=== PATIENT | female | born 1955 | race Caucasian/White ===

== ENCOUNTER 2021-09-02 18:20 | Inpatient (IN) | payer OTHER ==
[2021-09-02 20:35] LABS: BASO % 0.7 % (0-2.0); EOS % 3.5 % (0-4.5); HEMATOCRIT 38.9 % (32.4-45.2); HEMOGLOBIN 13.1 GM/dL (10.7-15.3); LYMPH % 19.5 % (8-40); MCH 32.7 pg (25.7-33.7); MCHC 33.8 g/dl (32.0-36.0); MEAN CELL VOLUME 96.9 fl (80-96); MEAN PLT VOLUME 9.6 fl (7.5-11.1); MONO % 7.4 % (3.8-10.2); NEUT % 68.9 % (42.8-82.8); PLATELET COUNT 220 10^3/uL (134-434); RBC 4.02 M/mm3 (3.60-5.2); RDW 13.4 % (11.6-15.6); WHITE BLOOD COUNT 6.9 K/mm3 (4.0-10.0)
[2021-09-02 20:41] LABS: INR 1.1 (0.83-1.09); PROTHROMBIN TIME (PATIENT) 12.7 SEC (9.7-13.0)
[2021-09-02 20:44] LABS: ACTIVATED PTT 31.3 SECONDS (25.2-36.5)
[2021-09-02 20:56] LABS: ALBUMIN 3.6 g/dl (3.4-5.0); BLOOD UREA NITROGEN 16.5 mg/dL (7-18); CALCIUM 9.4 mg/dL (8.5-10.1); MAGNESIUM 2.3 mg/dL (1.8-2.4)
[2021-09-02 20:59] LABS: CREATININE 0.7 mg/dL (0.55-1.3)
[2021-09-02 21:01] LABS: BILIRUBIN,TOTAL 0.2 mg/dL (0.2-1); TOT PROT 7.3 g/dl (6.4-8.2)
[2021-09-02] MEDS ORDERED: PIPERACILLIN/TAZOB 4.5 GM 4.5 GM in DEXTROSE 5%-WATER 100 ML IVPB ONE (23:08)
[2021-09-02] MEDS ORDERED: PIPERACILLIN/TAZOB 4.5 GM 4.5 GM/100 ML BAG IVPB ONE (23:56)
[2021-09-03] MEDS ORDERED: POLYETHYLENE GLYCOL (HEALTHYLAX) 3350 17 GM PACKET PO PRN (01:01)
[2021-09-03] MEDS ORDERED: ACETAMINOPHEN 1000 MG/100 ML BAG IVPB PRN (01:03)
[2021-09-03] MEDS ORDERED: FAMOTIDINE 20 MG/50 ML IVPB 20 MG/50 ML MG IVPB ONE ×2 (02:00→09:54)
[2021-09-03] MEDS: DEXTROSE 5%-NORMAL SALINE 1,000 ML IV SCH (02:09)
[2021-09-03] MEDS: FAMOTIDINE 20 MG/50 ML IVPB 20 MG/50 ML MG IVPB SCH ×3 (02:09→22:23)
[2021-09-03] MEDS ORDERED: PIPERACILLIN/TAZOB 3.375 GM 3.375 GM/50 ML BAG IVPB ONE ×3 (05:10→16:44)
[2021-09-03] MEDS: PIPERACILLIN/TAZOB 3.375 GM 3.375 GM in DEXTROSE 5%-WATER - 50 ML IVPB SCH ×4 (05:15→22:22)
[2021-09-03] MEDS ORDERED: PIPERACILLIN/TAZOB 3.375 GM 3.375 GM in DEXTROSE 5%-WATER - 50 ML IVPB SCH (06:00)
[2021-09-03] MEDS: POLYETHYLENE GLYCOL (HEALTHYLAX) 3350 17 GM PACKET PO SCH (11:00)
[2021-09-03] MEDS ORDERED: POLYETHYLENE GLYCOL (HEALTHYLAX) 3350 17 GM PACKET ONE (11:13)
[2021-09-03 13:15] LABS: BASO % 0.9 % (0-2.0); EOS % 4.4 % (0-4.5); HEMATOCRIT 36.7 % (32.4-45.2); HEMOGLOBIN 12.6 GM/dL (10.7-15.3); LYMPH % 26.2 % (8-40); MCHC 34.3 g/dl (32.0-36.0); MEAN CELL VOLUME 96.3 fl (80-96); MEAN PLT VOLUME 9.3 fl (7.5-11.1); MONO % 8.9 % (3.8-10.2); NEUT % 59.6 % (42.8-82.8); PLATELET COUNT 203 10^3/uL (134-434); RBC 3.81 M/mm3 (3.60-5.2); RDW 13.3 % (11.6-15.6); WHITE BLOOD COUNT 4.7 K/mm3 (4.0-10.0)
[2021-09-03 13:31] LABS: CALCIUM 8.5 mg/dL (8.5-10.1)
[2021-09-03 13:32] LABS: BLOOD UREA NITROGEN 9.5 mg/dL (7-18)
[2021-09-03 13:34] LABS: CREATININE 0.7 mg/dL (0.55-1.3)
[2021-09-03] MEDS ORDERED: BISACODYL 5 MG TABLET.DR (FP) PO ONE (15:29)
[2021-09-03] MEDS ORDERED: PEG 3350/NA SULF BICARB CL/KCL 4000 ML SOLN.RECON PO ONE (17:00)
[2021-09-03] MEDS ORDERED: PIPERACILLIN/TAZOBACTAM 3.375 GM VIAL IVPB ONE (21:25)
[2021-09-03] MEDS ORDERED: DEXTROSE 5%-WATER - 50 ML IVPB ONE (21:26)
[2021-09-03 23:50] VITALS: BMI 29.0
[2021-09-04] MEDS ORDERED: ONDANSETRON 4 MG/2 ML VIAL IVPUSH ONE (01:58)
[2021-09-04] MEDS: DEXTROSE 5%-NORMAL SALINE 1,000 ML IV SCH (06:48)
[2021-09-04] MEDS: FAMOTIDINE 20 MG/50 ML IVPB 20 MG/50 ML MG IVPB SCH (09:31)
[2021-09-04 09:47] LABS: BASO % 0.5 % (0-2.0); EOS % 1.1 % (0-4.5); HEMATOCRIT 38.2 % (32.4-45.2); HEMOGLOBIN 12.8 GM/dL (10.7-15.3); LYMPH % 20.3 % (8-40); MCH 32.4 pg (25.7-33.7); MCHC 33.5 g/dl (32.0-36.0); MEAN CELL VOLUME 96.9 fl (80-96); MONO % 5.4 % (3.8-10.2); NEUT % 72.7 % (42.8-82.8); PLATELET COUNT 214 10^3/uL (134-434); RBC 3.94 M/mm3 (3.60-5.2); RDW 13.3 % (11.6-15.6); WHITE BLOOD COUNT 7.7 K/mm3 (4.0-10.0)
[2021-09-04 10:05] LABS: CALCIUM 8.6 mg/dL (8.5-10.1)
[2021-09-04 10:09] LABS: CREATININE 0.6 mg/dL (0.55-1.3)
[2021-09-04] MEDS: POLYETHYLENE GLYCOL (HEALTHYLAX) 3350 17 GM PACKET PO SCH (12:26)
[2021-09-04 15:05] VITALS: BP 122/65; PULSE 69; TEMP 98.3
[2021-09-04] MEDS ORDERED: MESALAMINE 4 GM/60 ML ENEMA RC SCH (22:00)
== END 2021-09-04 19:56 | disposition home or self-care (01) | DRG 386 ==
LOC: JER 18:20 → JERBED 09-03 00:54 → J4W 09-03 20:56
PROVIDERS: ADMIT Hospitalist; ATTEND Family Medicine
PROC: 0DBH8ZX Excision of Cecum, Via Natural or Artificial Opening Endoscopic, Diagnostic (ICD-10-PCS; 2021-09-04)
PROC: 0DBL8ZX Excision of Transverse Colon, Via Natural or Artificial Opening Endoscopic, Diagnostic (ICD-10-PCS; 2021-09-04)
PROC: 0DBN8ZX Excision of Sigmoid Colon, Via Natural or Artificial Opening Endoscopic, Diagnostic (ICD-10-PCS; 2021-09-04)
PROC: 0DBP8ZX Excision of Rectum, Via Natural or Artificial Opening Endoscopic, Diagnostic (ICD-10-PCS; 2021-09-04)
PROC: 0DBK8ZX Excision of Ascending Colon, Via Natural or Artificial Opening Endoscopic, Diagnostic (ICD-10-PCS; principal; 2021-09-04 14:15)
DX: K51.211 Ulcerative (chronic) proctitis with rectal bleeding (principal); K92.1 Melena; K21.9 Gastro-esophageal reflux disease without esophagitis; E11.9 Type 2 diabetes mellitus without complications; R00.2 Palpitations; R07.89 Other chest pain; K63.5 Polyp of colon
CPT/HCPCS: 36415; 71045-TC-FY; 72193-TC; 74160-TC; 74177-TC; 80048; 80053; 82272; 82962; 83735; 84443; 84484; 85025; 85610; 85730; 86140; 88305-TC; 93005; 93010; 99285-25; C9803; Q9967; U0003; U0005

== ENCOUNTER 2023-10-14 05:18 | Day surgery (SDC) | payer OTHER ==
[2023-10-11 09:28] VITALS: BMI 28.7
[2023-10-14] MEDS ORDERED: ETOMIDATE 20 MG/10 ML VIAL IVPUSH ONE (12:57)
[2023-10-14 13:28] VITALS: RESP 18; TEMP 98.4
[2023-10-14 14:47] VITALS: BP 109/58; PULSE 59
== END 2023-10-14 14:47 | disposition home or self-care (01) ==
LOC: JASU-ENDO 05:18
PROVIDERS: ATTEND Internal Medicine Gastroenterology
PROC: 0DBL8ZX Excision of Transverse Colon, Via Natural or Artificial Opening Endoscopic, Diagnostic (ICD-10-PCS; 2023-10-14)
PROC: 0DBN8ZX Excision of Sigmoid Colon, Via Natural or Artificial Opening Endoscopic, Diagnostic (ICD-10-PCS; principal; 2023-10-14 13:00)
DX: Z12.11 Encounter for screening for malignant neoplasm of colon (principal); D12.3 Benign neoplasm of transverse colon; D12.5 Benign neoplasm of sigmoid colon; K57.30 Diverticulosis of large intestine without perforation or abscess without bleeding; Z86.010 Personal history of colon polyps
CPT/HCPCS: 82962; 88305-TC